=== PATIENT | female | born 1935 | race Caucasian/White ===

== ENCOUNTER 2016-12-24 08:28 | Inpatient (IN) | payer MEDICARE ==
[~2016-12-24] VITALS: Ht 157.4 cm; Wt 55.5 kg
[2016-12-24] VITALS (8 sets, daily range): BP systolic 102–163; BP diastolic 61–76
--- NOTE | ~2016-12-24 | PR ---
[place], [place] PROGRESS NOTE NAME: GLEN MANCILLA UNIT #: [id number] ROOM: 526 DOCTOR: LAURA CHA MD BIRTHDATE: [birth year] DOS: SUBJECTIVE: The patient is completely flat in bed, very confused, does not respond to any verbal command. Both nurses are in the room at the time of this exam. No reported chest pain or cardiac complaints. She has confusion. The patient is having some abdominal pain. CT scan of the abdomen has been ordered by PCP. OBJECTIVE: VITAL SIGNS: Blood pressure 117/81, heart rate 83, respiratory rate of 18 and temperature 97.5. NECK: Good upstroke, no JVD. HEART: S1, S2, no rub. LUNGS: Clear to auscultation. ABDOMEN: Distended, tender. Very limited exam, unable to appreciate any masses or bruits. EXTREMITIES: Lower extremities, severe edema bilateral showing some improvement. LABORATORY DATA: White count 18.7 with left shift, potassium 4.3, creatinine 1.4, BUN 52. Troponin 0.026. CK 142, MB 4.9. ASSESSMENT AND PLAN: Presentation with bilateral lower extremity edema in a patient who is a very poor historian currently showing some confusion, inability to comply with verbal command. The patient is completely flat and appears to be euvolemic from the lung status. There continued to be significant lower extremity edema with some improvement with diuresis. There was no BMP reported today for that and I will order it. Some elements of drop in blood pressure and for that I will decrease Lopressor to 25 mg b.i.d. Echocardiogram as noted before has been normal LV size and function with normal ejection fraction. No wall motion abnormalities. From the Cardiology point of view, I will hold any further workup at this time. Continue current medication. The patient's mental status and abdominal pain will be deferred to PCP. [place], [place] PROGRESS NOTE NAME: GLEN MANCILLA UNIT #: [id number] ROOM: 526 DOCTOR: LAURA CHA MD BIRTHDATE: [birth year] LAURA CHA MD CM:PNTRANS [id number] LAURA CHA MD 12/28/168 interface
--- NOTE | ~2016-12-24 | PR ---
[place], [place] PROGRESS NOTE NAME: GLEN MANCILLA [facility] #: [id number] UNIT #: [id number] ROOM: 526 DOCTOR: LAURA CHA MD BIRTHDATE: [birth year] DOS: 12/26/2016 SUBJECTIVE: The patient is sitting up in chair. Denies any specific cardiac complaint, quite a poor historian, but she appears to be slightly improved from yesterday. OBJECTIVE: VITAL SIGNS: Blood pressure 134/93, heart rate 66, respiratory rate of 14, temperature 98.1. NECK: Good upstroke, no JVD. HEART: S1, S2 with holosystolic murmur at the left sternal border. LUNGS: Clear to auscultation. No wheezing, no rales. EXTREMITIES: Lower extremities with significant edema. LABORATORY DATA: White count 18.7 with left shift, hemoglobin 15.4, BUN 52, creatinine of 1.4 (improved from yesterday). GFR is 36%, improved from 30%. CK is 272 followed by 127 and then 142, CK-MB is 7.9, then 5.1, then 4.9. Troponin 0.048, then 0.046, then 0.052, then 0.0509, then 0.026. Echocardiogram showed normal LV function with no wall motion abnormalities. ASSESSMENT AND PLAN: Presentation with worsening lower extremity edema in a patient, who is showing some renal failure along with elevated cardiac enzymes. There was slight increase of CK-MB along with the troponin. For that, we cannot exclude an ischemic event. The echocardiogram is showing normal LV function, ejection fraction of 70% with no wall motion abnormalities, gave window for medical treatment. For that, I will switch Lopressor to 50 mg b.i.d., add aspirin enteric-coated 81 mg along with a decrease Lasix to 40 mg once a day IV. I will plan to switch this to p.o. over the weekend with careful watch of the BUN and creatinine and I's and O's. Low salt diet should be emphasized. No further cardiac testing at this time. I will hold on ischemic evaluation for now as long as the patient is exhibiting no specific cardiac complaints. LAURA CHA MD CM:PNTRANS [id number] LAURA CHA MD 12/26/16 1256 interface
--- NOTE | ~2016-12-24 | CON ---
[place], [place] REPORT OF [facility]ATION [id number] UNIT #: [id number] ROOM: 526 DOCTOR: LAURA CHA MD BIRTHDATE: [birth year] DOS: REASON FOR CONSULTATION: Tachycardia, hypertension and irregular heartbeats. ASSESSMENT: 1. Current presentation to the hospital for severe bilateral lower extremity edema with worsening symptoms over the past week. 2. The patient is a very poor historian with very limited functional capacity, still though lives at home. 3. Active tobacco abuse. 4. Elevated cardiac enzymes. 5. Early family history of heart disease. PLAN: 1. Stop IV fluid. 2. Continue to cycle cardiac enzymes with CPK-MB and troponin. 3. Initiate Lasix 40 mg IV b.i.d. for 4 doses only. 4. Hold Cardizem drip. 5. Initiate Lopressor 25 mg q.6 hours. 6. Daily weights and I's and O's with low salt diet. 7. Proceed with echocardiogram. 8. Check sed rate and CRP. 9. Enteric coated aspirin 81 mg. 10. No further cardiac testing at this time (I will hold on stress testing at this time). HISTORY OF PRESENT ILLNESS: The patient is a pleasant 81-year-old female unknown to our practice, was referred by Dr. Sanches for further evaluation of possible congestive heart failure, irregular heartbeats along with tachycardia. The patient is a very poor historian though she claims she was brought into the hospital for worsening of lower extremity edema, appears quite significant. The patient thinks this has been going on for only 2 weeks, even though it appears to be much chronic and more extensive than what the patient is stating. At no time she reports any chest pain, chest pressure, heaviness or tightness. Never had any symptomatic palpitation or any associated dizziness, lightheadedness, or near syncope. The patient claims her appetite is steady with no significant weight change even though appears patient has been gaining weight. The patient also appears to be cachectic. The patient's history to be taken overall in the context of poor historian patient. The patient denies any fever, chills or night sweats. She lives home alone, even though she is visited occasional by her friends, but she claims she goes shopping without any walker or a cane. No reported snoring. No PND, orthopnea. PAST MEDICAL HISTORY: As detailed in my assessment. SOCIAL HISTORY: The patient continued smoke, has been doing this since she was in her teens. Never had any history of heavy alcohol or illicit drug abuse. FAMILY HISTORY: The patient cannot remember quite extensively, but she knows [place], [place] REPORT OF CONSULTATION NAME: GLEN MANCILLA UNIT #: [id number] ROOM: 526 DOCTOR: LAURA CHA MD BIRTHDATE: [birth year] her mother had myocardial infarction in her 60s. Her father had a heart problem, but she is not able to remember how early. She has 7 brothers, also she cannot remember if any of them had any heart problem. CURRENT MEDICATIONS: Vitamin D, piperacillin, Lovenox, Cardizem, morphine, Dulcolax. ALLERGIES: The patient has no reported drug allergies. REVIEW OF SYSTEMS: The patient currently denies any headache, diplopia, or blurry vision. No fever, no chills, no night sweats. No abdominal pain, no bright red blood per rectum, no tarry stools. The patient admits to joint pain and muscular pain. Depression, but no anxiety. No polyuria, no polydipsia, no skin rash. Review of all other systems has been negative. PHYSICAL EXAMINATION: GENERAL: The patient is alert and oriented x 3, sitting up in a chair, does not appear in distress. VITAL SIGNS: Blood pressure initially 113/63, heart rate 75 currently 95/71 with heart rate of 80, temperature 97.9 and respiration rate of 16. HEENT: Extraocular muscles intact. Pupils equal, round, reactive to light. Conjunctivae pallor was present. The patient appeared to be pale. NECK: Good upstroke. Unable to appreciate any bruit, no lymphadenopathy, no thyromegaly. HEART: S1, S2 with holosystolic murmur in the left upper sternal border. A faint systolic ejection murmur with a loud P2 physiologic split second heart. CHEST AND BACK: Mild kyphosis. LUNGS: Decreased air movement, but no mason wheezing or rales. ABDOMEN: Distended, obese, soft, nontender. Present bowel sounds. Unable to appreciate any masses or bruits. EXTREMITIES: Lower extremity, severe edema bilateral, almost for over 4. NEUROLOGIC: Grossly nonfocal. SKIN: No significant rash. LABORATORY DATA: White count initially 22,000, currently 18.8. There is a left shift, 88% neutrophils, potassium 5.0, creatinine 1.4, BUN 56, GFR 34, AST 316, ALT 133, alkaline phosphatase 386, total protein 5.1, albumin 2.2, total cholesterol 145, LDL 134, HDL 11, vitamin D is 12.2. Normal thyroid function test. Electrocardiogram showing sinus tachycardia with a regular sinus rhythm, criteria for right bundle branch block and nonspecific ST-T changes . [place], [place] REPORT OF CONSULTATION NAME: GLEN MANCILLA UNIT #: [id number] ROOM: 526 DOCTOR: LAURA CHA MD BIRTHDATE: [birth year] LAURA CHA MD CM:CONSTR:REPORT OF CONSULTATION 1247 12/25/16 1507 interface
--- NOTE | ~2016-12-24 | CON ---
[place], [place] REPORT OF CONSULTATION [id number] UNIT #: [id number] ROOM: 526 DOCTOR: PAULINE RIVERA DPM BIRTHDATE: [birth year] DOS: 12/26/2016 SUBJECTIVE: This patient is seen as consulted for care of significantly elongated thick toenails on both feet. The patient states it has been quite some time since she has had her nails trimmed. The patient was admitted to the hospital after a fall and she has also had some confusion. PAST MEDICAL HISTORY: Includes a pack to a pack and a half of cigarettes per day for many years. She has chronic swelling in both lower extremities. CURRENT MEDICATIONS: Include vitamin D, Lopressor, Lasix, aspirin, Zosyn, Lopressor, Cardizem. ALLERGIES: No known drug allergies. OBJECTIVE: Upon lower extremity examination, DP and PT pedal pulses are barely palpable, but I can barely palpate a pulse. There is 1-2+ pitting edema noted in both lower extremities. She is wearing Tubigrip at this time to reduce swelling. Skin temperature is slightly cool to toes. CFT is 2 seconds to all digits. Sensation appears grossly intact and symmetrical. Mild decreased muscle strength is seen uniformly bilaterally. Nails 1 through 5 bilaterally are extremely overgrown, thick, brittle, dystrophic, discolored with subungual debris present. They are painful to palpation. The nails themselves are probably 2-3 inches long on both feet. There are no open wounds noted on either foot. Mild dry skin is seen, no cracks or rashes. ASSESSMENT: Chronic venous insufficiency with edema bilaterally, onychomycosis 1 through 5 bilaterally with pain. PLAN: Consult is performed. Recommend continue with Tubigrip and elevating her legs at this time. Manual debridement of mycotic nails 1 through 5 bilaterally in length and thickness to the level of the nail bed to reduce hazards such as infection. Recommend following up with her as an outpatient in 9 weeks for continued foot care. Thank you for the opportunity to take part in care of this patient. PAULINE RIVERA DPM CM:CONSTR:REPORT OF CONSULTATION 1157 12/26/16 1313 interface
[2016-12-24 09:02] LABS: HEMATOCRIT 46.2 % (37.0-47.0); HEMOGLOBIN 15.2 g/dl (12.0-16.0); MEAN CELL VOLUME 87.3 fl (81.0-99.0); MEAN CORPUSCULAR HGB 28.7 pg (27.0-31.0); MEAN CORPUSCULAR HGB CONC 32.9 g/dl (33.0-37.0); MEAN PLATELET VOLUME 10.8 fl (9.6-12.3); NUCLEATED RED BLOOD CELL 0.1 % (0.0-0.0); PLATELET COUNT AUTOMATED 321 10*3/uL (130-400); RED BLOOD COUNT 5.29 10*6/uL (4.10-5.10); RED CELL DISTRI WIDTH 17.1 % (0-14.5)
[2016-12-24 09:06] LABS: BILIRUBIN 2+ (NEGATIVE); BLOOD 3+ (NEGATIVE); CLARITY CLOUDY (CLEAR); COLOR BROWN (YELLOW); GLUCOSE NEGATIVE (NEGATIVE); KETONE TRACE (NEGATIVE); LEUKO ESTERASE TRACE (NEGATIVE); NITRITE POSITIVE (NEGATIVE); PROTEIN 2+ (NEGATIVE); SPECIFIC GRAVITY >= 1.030 (1.005-1.030)
[2016-12-24 09:14] LABS: INTERNATIONAL NORM RATIO 1.3 (2.0-3.5)
[2016-12-24 09:18] LABS: ALBUMIN 2.7 gm/dl (3.1-4.5); BILIRUBIN, TOTAL 3.5 mg/dl (0.2-1.0); TOTAL PROTEIN 5.9 gm/dL (6.4-8.2)
[2016-12-24 09:24] LABS: BURR CELLS FEW; LYMPHOCYTE # 0.2 10*3/uL (1.3-4.4); MONOCYTE # 1.1 10*3/uL (0.1-1.0); NEUTROPHIL # 20.7 10*3/uL (2.3-7.9); NEUTROPHILS 94 % (47-73); PLATELET SUFFICIENCY NORMAL (NORMAL); TOTAL CELLS COUNTED 100 #CELLS
[2016-12-24 09:26] LABS: TROPONIN I 0.048 ng/ml (<0.045)
[2016-12-24 09:31] LABS: BACTERIA 2+; CALCIUM OXALATE CRYSTALS 1+; RBC TNTC rbc/hpf (0-2); URINE REFLEX COMMENT YES (NO); WBC 21-30 wbc/hpf (0-5)
[2016-12-24 11:07] LABS: LA>2 REFLEX 2 HR DRAW NOW
[2016-12-24 12:10] LABS: LA>2 RFLX FOLLOW UP AT 2 HRS 2.9 mmol/L (0.4-2.0)
[2016-12-24] MEDS ORDERED: MULTI VITAMINS1 TAB PO (13:46)
[2016-12-24] MEDS ORDERED: ALEVE220 M1 PO (13:47)
[2016-12-24 13:54] LABS: LA>2 REFLEX 4 HR DRAW NOW
[2016-12-24 20:00] LABS: LA>2 REFLEX 2 HR DRAW NOW
[2016-12-24 20:47] LABS: LA>2 RFLX FOLLOW UP AT 2 HRS 2.5 mmol/L (0.4-2.0)
[2016-12-24 21:03] LABS: CKMB 5.1 ng/ml (0.5-3.6); TROPONIN I 0.049 ng/ml (<0.045)
[2016-12-24 22:40] LABS: LA>2 REFLEX 4 HR DRAW NOW
[2016-12-25] VITALS: BP 128/53
[2016-12-25 06:02] LABS: BASO % 0.2 % (0.0-1.0); EOS % 0.1 % (1.0-4.0); HEMATOCRIT 44.6 % (37.0-47.0); HEMOGLOBIN 14.6 g/dl (12.0-16.0); IG # 0.1 10*3/uL (0.0-0.1); LYMPH # 0.6 10*3/uL (1.3-4.4); LYMPH % 3.4 % (27.0-41.0); MEAN CELL VOLUME 89.6 fl (81.0-99.0); MEAN CORPUSCULAR HGB 29.3 pg (27.0-31.0); MEAN CORPUSCULAR HGB CONC 32.7 g/dl (33.0-37.0); MEAN PLATELET VOLUME 11.2 fl (9.6-12.3); MONO # 1.4 10*3/uL (0.1-1.0); MONO % 7.4 % (3.0-9.0); NEUT # 16.6 10*3/uL (2.3-7.9); NEUT % 88.2 % (47.0-73.0); PLATELET COUNT AUTOMATED 320 10*3/uL (130-400); RED BLOOD COUNT 4.98 10*6/uL (4.10-5.10); WHITE BLOOD COUNT 18.8 10*3/uL (4.8-10.8)
[2016-12-25 06:08] LABS: ALBUMIN 2.2 gm/dl (3.1-4.5); BILIRUBIN, TOTAL 2.6 mg/dl (0.2-1.0); PHOSPHOROUS 3.3 mg/dL (2.5-4.9); TOTAL PROTEIN 5.1 gm/dL (6.4-8.2)
[2016-12-25 06:13] LABS: THYROID STIM HORMONE (HS) 0.573 uIU/ml (0.358-4.75)
[2016-12-25 06:19] LABS: INTERNATIONAL NORM RATIO 1.2 (2.0-3.5); PROTHROMBIN TIME 13.1 SECONDS (9.0-12.4)
[2016-12-25 06:32] LABS: FREE T4 1.35 ng/dl (0.76-1.46)
[2016-12-25 07:27] LABS: FOLIC ACID 9.64 ng/mL (>5.38); VITAMIN D, 25-HYDROXY 12.2 ng/mL (30-100)
[2016-12-25 08:00] VITALS: BP 113/63
[2016-12-25 11:37] VITALS: BP 95/71
[2016-12-25 15:06] LABS: CKMB 4.9 ng/ml (0.5-3.6); TROPONIN I 0.026 ng/ml (<0.045)
[2016-12-25 16:00] VITALS: BP 136/65
[2016-12-25 20:00] VITALS: BP 153/64
[2016-12-26] VITALS: BP 148/58
[2016-12-26 06:19] LABS: POTASSIUM 4.3 mmol/L (3.5-5.1)
[2016-12-26 06:30] LABS: BASO # 0.1 10*3/uL (0.0-0.1); BASO % 0.3 % (0.0-1.0); EOS # 0.1 10*3/uL (0.0-0.4); EOS % 0.4 % (1.0-4.0); HEMATOCRIT 45.4 % (37.0-47.0); HEMOGLOBIN 15.4 g/dl (12.0-16.0); IG # 0.1 10*3/uL (0.0-0.1); LYMPH # 0.8 10*3/uL (1.3-4.4); LYMPH % 4.1 % (27.0-41.0); MEAN CORPUSCULAR HGB 29.2 pg (27.0-31.0); MEAN CORPUSCULAR HGB CONC 33.9 g/dl (33.0-37.0); MEAN PLATELET VOLUME 11.5 fl (9.6-12.3); MONO # 1.3 10*3/uL (0.1-1.0); MONO % 6.9 % (3.0-9.0); NEUT # 16.4 10*3/uL (2.3-7.9); NEUT % 87.6 % (47.0-73.0); NUCLEATED RED BLOOD CELL 0.1 % (0.0-0.0); PLATELET COUNT AUTOMATED 284 10*3/uL (130-400); RED BLOOD COUNT 5.28 10*6/uL (4.10-5.10); RED CELL DISTRI WIDTH 18.4 % (0-14.5); WHITE BLOOD COUNT 18.7 10*3/uL (4.8-10.8)
[2016-12-26 08:00] VITALS: BP 134/93
[2016-12-26 11:36] VITALS: BP 108/61
[2016-12-26 12:00] VITALS: BP 104/58
[2016-12-26 16:00] VITALS: BP 108/63
[2016-12-26 20:00] VITALS: BP 97/67
[2016-12-27] VITALS: BP 116/66
[2016-12-27 08:00] VITALS: BP 117/81
[2016-12-27 12:00] VITALS: BP 143/70
[2016-12-27 13:16] LABS: POTASSIUM 4.5 mmol/L (3.5-5.1)
[2016-12-27 16:00] VITALS: BP 104/59
== END 2016-12-27 19:43 | disposition short-term general hospital (02) | DRG 871 ==
LOC: ED 08:28 → EDHOLD 10:43 → 5E 10:43
PROVIDERS: Emergency Medicine; Internal Medicine Cardiovascular Disease; Internal Medicine Hospice and Palliative Medicine; Nurse Practitioner Family; Student in an Organized Health Care Education/Training Program
PROC: 0HBRXZZ Excision of Toe Nail, External Approach (ICD-10-PCS; principal; 2016-12-26)
DX: A41.9 Sepsis, unspecified organism (principal); N17.0 Acute kidney failure with tubular necrosis; K63.1 Perforation of intestine (nontraumatic); E43 Unspecified severe protein-calorie malnutrition; I48.91 Unspecified atrial fibrillation; N39.0 Urinary tract infection, site not specified; I65.23 Occlusion and stenosis of bilateral carotid arteries; R31.29 Other microscopic hematuria; R16.2 Hepatomegaly with splenomegaly, not elsewhere classified; L03.116 Cellulitis of left lower limb; R03.0 Elevated blood-pressure reading, without diagnosis of hypertension; R74.0 Nonspecific elevation of levels of transaminase and lactic acid dehydrogenase [LDH]; I87.2 Venous insufficiency (chronic) (peripheral); R65.20 Severe sepsis without septic shock; W18.30XA Fall on same level, unspecified, initial encounter; F17.210 Nicotine dependence, cigarettes, uncomplicated; B35.1 Tinea unguium; Z60.2 Problems related to living alone; Y93.89 Activity, other specified; Y92.009 Unspecified place in unspecified non-institutional (private) residence as the place of occurrence of the external cause; Y99.8 Other external cause status; Z68.22 Body mass index [BMI] 22.0-22.9, adult; Z71.6 Tobacco abuse counseling; Z79.899 Other long term (current) drug therapy